=== PATIENT | male | born 1950 | race Caucasian/White ===

== ENCOUNTER 2019-04-08 07:31 | Observation (INO) | payer MEDICARE, OTHER ==
[2019-04-08] MEDS ORDERED: Dextrose 5%-0.9% NaCl 1,000 ML IV SCH (08:30)
[2019-04-08] MEDS ORDERED: Aspirin 81 MG Tab.Chew PO ONE (09:39)
--- NOTE | 2019-04-08 09:39 | EDM.PDOC ---
ED HPI GENERAL MEDICAL PROBLEM - General Chief Complaint: General Stated Complaint: chest pressure Time Seen by Provider: 04/08/19 08:00 Source of Information: Reports: Patient History Limitations: Reports: No Limitations - History of Present Illness INITIAL COMMENTS - FREE TEXT/NARRATIVE: This is a 69yo M with new onset chest pain and diaphoresis and weakness. He states it started around 7 am and he came into the ER just before 8. He denies any prior history of these symptoms or any prior history of heart disease. Onset: Sudden Duration: Minutes:, Constant Location: Reports: Chest Quality: Reports: Ache Severity: Moderate Improves with: Reports: None Worsens with: Reports: None Chest Pain Score (Numeric/FACES): 2 Past Medical History - Past Health History Medical/Surgical History: Denies Medical/Surgical History Psychiatric History: Reports: Anxiety Other Psychiatric History: Depression after his parents passed, went through therapy and "doing better now". Social & Family History - Family History Family Medical History: Noncontributory - Tobacco Use Smoking Status *Q: Never Smoker Second Hand Smoke Exposure: No - Caffeine Use Caffeine Use: Reports: Coffee - Recreational Drug Use Recreational Drug Use: No ED ROS GENERAL - Review of Systems Review Of Systems: ROS reveals no pertinent complaints other than HPI. Constitutional: Reports: No Symptoms HEENT: Reports: No Symptoms Respiratory: Reports: No Symptoms Cardiovascular: Reports: No Symptoms Endocrine: Reports: No Symptoms GI/Abdominal: Reports: No Symptoms : Reports: No Symptoms Musculoskeletal: Reports: No Symptoms Skin: Reports: No Symptoms ED EXAM, GENERAL - Physical Exam Exam: See Below Exam Limited By: No Limitations General Appearance: Alert, WD/WN, No Apparent Distress Eye Exam: Bilateral Eye: EOMI, PERRL Ears: Normal External Exam Ear Exam: Bilateral Ear: TM normal Nose: Normal Inspection Throat/Mouth: Normal Inspection Head: Atraumatic, Normocephalic Neck: Normal Inspection Respiratory/Chest: No Respiratory Distress, Lungs Clear, Normal Breath Sounds Cardiovascular: Normal Peripheral Pulses, Regular Rate, Rhythm GI/Abdominal: Normal Bowel Sounds Back Exam: Normal Inspection Extremities: Normal Inspection, Normal Range of Motion Neurological: Alert, Oriented, CN II-XII Intact Course - Vital Signs Last Recorded V/S: Last Vital Signs Temp 36.8 C 04/08/19 07:40 Pulse 75 04/08/19 08:07 Resp 18 04/08/19 08:07 BP 138/85 04/08/19 08:07 Pulse Ox 100 04/08/19 08:07 - Orders/Labs/Meds Orders: Active Orders 24 hr Category Date Time Status Patient Status [ADT] Routine ADT 04/08/19 09:27 Active EKG Documentation Completion [RC] ASDIRECTED Care 04/08/19 07:50 Active Vital Signs [RC] Q4H Care 04/08/19 09:27 Active Regular Diet [DIET] Diet 04/08/19 Lunch Ordered TROPONIN I [CHEM] Routine Lab 04/08/19 11:00 Ordered TROPONIN I [CHEM] Routine Lab 04/08/19 20:00 Ordered Dextrose 5%-0.9% NaCl [Dextrose 5%-Normal Saline] 1,000 Med 04/08/19 08:30 Active ml IV ASDIRECTED Resuscitation Status Routine Resus Stat 04/08/19 09:27 Ordered Medication Orders Dextrose/Sodium Chloride (Dextrose 5%-Normal Saline) 1,000 mls @ 999 mls/hr IV ASDIRECTED MYRTLE Last Admin: 04/08/19 08:59 Dose: 999 mls/hr Labs: Laboratory Tests 04/08/19 04/08/19 04/08/19 Range/Units 08:00 08:00 08:00 WBC 7.0 (4.0-11.0) K/uL RBC 4.22 L (4.50-6.50) M/uL Hgb 13.7 (13.0-18.0) g/dL Hct 40.1 (40.0-54.0) % MCV 95 (76-96) fL MCH 32.5 H (27.0-32.0) pg MCHC 34.2 (31.0-35.0) g/dL RDW 12.9 (11.0-16.0) % Plt Count 243 (150-400) K/uL MPV 8.6 (6.0-10.0) fL Neut % (Auto) 52.5 (45.0-70.0) % Lymph % (Auto) 32.3 (20.0-40.0) % [place] % (Auto) 11.1 H (3.0-10.0) % Eos % (Auto) 3.4 (1.0-5.0) % Baso % (Auto) 0.7 H (0.0-0.5) % Neut # (Auto) 3.69 (2.00-7.50) K/uL Lymph # (Auto) 2.27 (1.50-4.00) K/uL [place] # (Auto) 0.78 (0.20-0.80) K/uL Eos # (Auto) 0.24 (0.04-0.40) K/uL Baso # (Auto) 0.05 (0.02-0.10) K/uL Sodium 139 (136-145) mmol/L Potassium 4.2 (3.5-5.1) mmol/L Chloride 100 (98-107) mmol/L Carbon Dioxide 27.9 (21.0-32.0) mmol/L Anion Gap 15.3 H (5.0-15.0) mmol/L BUN 19 (8-26) mg/dL Creatinine 1.02 (0.70-1.30) mg/dL Est Cr Clr Drug Dosing 64.48 mL/min Estimated GFR (MDRD) > 60 (>60) MLS/MIN BUN/Creatinine Ratio 18.6 (6-25) Glucose 118 H (74-100) mg/dL Calcium 9.1 (8.5-10.1) mg/dL Troponin I < 0.017 (0.000-0.060) ng/mL B-Natriuretic Peptide 117 (0-125) pg/mL TSH, Ultra Sensitive 1.037 (0.358-3.740) uIU/mL Meds: Medications Generic Name Dose Route Start Last Admin Trade Name Freq PRN Reason Stop Dose Admin Dextrose/Sodium Chloride 1,000 mls @ 999 mls/hr 04/08/19 08:30 04/08/19 08:59 Dextrose 5%-Normal Saline IV 999 mls/hr ASDIRECTED MYRTLE Administration Departure - Departure Time of Disposition: 09:30 Disposition: Refer to Observation Condition: Good Clinical Impression: Chest pain at rest - Discharge Information Referrals: PCP,Unknown [Primary Care Provider] - - Problem List & Annotations (1) Chest pain at rest SNOMED Code(s): 0500346 Code(s): R07.9 - CHEST PAIN, UNSPECIFIED Status: Acute Priority: High Current Visit: Yes (2) Diaphoresis SNOMED Code(s): 40878291 Code(s): R61 - GENERALIZED HYPERHIDROSIS Status: Acute Priority: High Current Visit: Yes (3) Weakness SNOMED Code(s): 51624813 Code(s): R53.1 - WEAKNESS Status: Acute Priority: High Current Visit: Yes - Problem List Review Problem List Initiated/Reviewed/Updated: Yes - My Orders Last 24 Hours: My Active Orders 04/08/19 07:50 EKG Documentation Completion [RC] ASDIRECTED 04/08/19 08:30 Dextrose 5%-0.9% NaCl [Dextrose 5%-Normal Saline] 1,000 ml IV ASDIRECTED 04/08/19 09:27 Patient Status [ADT] Routine Vital Signs [RC] Q4H Resuscitation Status Routine 04/08/19 11:00 TROPONIN I [CHEM] Routine 04/08/19 20:00 TROPONIN I [CHEM] Routine 04/08/19 Lunch Regular Diet [DIET] - Assessment/Plan Last 24 Hours: My Active Orders 04/08/19 07:50 EKG Documentation Completion [RC] ASDIRECTED 04/08/19 08:30 Dextrose 5%-0.9% NaCl [Dextrose 5%-Normal Saline] 1,000 ml IV ASDIRECTED 04/08/19 09:27 Patient Status [ADT] Routine Vital Signs [RC] Q4H Resuscitation Status Routine 04/08/19 11:00 TROPONIN I [CHEM] Routine 04/08/19 20:00 TROPONIN I [CHEM] Routine 04/08/19 Lunch Regular Diet [DIET] Plan: Patient to be placed in observation to rule out ACS. Pending serial troponins.Placed on telemetry.
[2019-04-08 15:24] LABS: HEMOGLOBIN A1C 5.7 % (4.5-6.2)
--- NOTE | 2019-04-09 09:16 | PCM.DCSUM1 ---
Discharge Summary - Discharge Data Discharge Date: 04/08/19 Discharge Disposition: Home, Self-Care 01 Condition: Good - Referral to Home Health Primary Care Physician: Leo Ibanez MD - Discharge Diagnosis/Problem(s) (1) Chest pain at rest SNOMED Code(s): 4825550 ICD Code: R07.9 - CHEST PAIN, UNSPECIFIED Status: Acute Priority: High (2) Diaphoresis SNOMED Code(s): 30498432 ICD Code: R61 - GENERALIZED HYPERHIDROSIS Status: Acute Priority: High (3) Weakness SNOMED Code(s): 89292827 ICD Code: R53.1 - WEAKNESS Status: Acute Priority: High - Patient Instructions Diet: Regular Diet as Tolerated Activity: As Tolerated Driving: May Drive Today Showering/Bathing: May Shower Notify Provider of: Fever, Increased Pain - Discharge Plan Home Medications: Home Meds Omeprazole 40 mg PO ACBREAKFAST #90 cap.sr 04/09/19 [Rx] Patient Handouts: Nonspecific Chest Pain, [id number] Forms: ED Department Discharge Referrals: PCP,Unknown [Ordering Only Provider] - - Discharge Summary/Plan Comment DC Time >30 min.: No Discharge Summary/Plan Comment: Counseled on f/u with PCP for further management of symptoms. Start omeprazole as directed for gastroesopheageal reflux symptoms. F/u as directed for further cardaic screening as needed. - Patient Data Vitals - Most Recent: Last Vital Signs Temp 37.4 C 04/08/19 20:01 Pulse 76 04/08/19 20:01 Resp 16 04/08/19 20:01 BP 144/82 H 04/08/19 20:01 Pulse Ox 100 04/08/19 20:01 Weight - Most Recent: 65.771 kg Lab Results - Last 24 hrs: Laboratory Results - last 24 hr 04/08/19 04/08/19 04/08/19 Range/Units 08:00 11:15 20:14 Hemoglobin A1c 5.7 (4.5-6.2) % Troponin I < 0.017 < 0.017 (0.000-0.060) ng/mL YANET Results - Last 24 hrs: Microbiology 04/08/19 10:25 MRSA Surveillance Culture - Final Nares, Right NO MRSA ISOLATED Med Orders - Current: Current Medications Discontinued Medications Aspirin (Aspirin) 324 mg PO ONETIME ONE Stop: 04/08/19 09:40 Last Admin: 04/08/19 11:18 Dose: 324 mg Dextrose/Sodium Chloride (Dextrose 5%-Normal Saline) 1,000 mls @ 999 mls/hr IV ASDIRECTED [facility] Last Admin: 04/08/19 08:59 Dose: 999 mls/hr
== END 2019-04-08 23:00 | disposition home or self-care (01) ==
LOC: LB.ED 07:31 → LB.MS 09:27
PROVIDERS: ADMIT Family Medicine; ATTEND Family Medicine
DX: R07.9 Chest pain, unspecified (principal); R61 Generalized hyperhidrosis; R53.1 Weakness
CPT/HCPCS: 36415; 80048; 83036; 83880; 84443; 84484; 85025; 93005; 96360; 99285-25; A9270-GY

== ENCOUNTER 2020-03-13 12:11 | Emergency (ER) | payer MEDICARE, OTHER ==
--- NOTE | 2020-03-13 16:34 | ER ---
REASON FOR EMERGENCY ROOM VISIT: Congestion and chest tightness. HISTORY: This 70-year-old man began to experience some fullness and discomfort over his paranasal sinuses earlier this week, 3 days ago. He felt a fullness and he even experienced his upper molars aching that he attributed to sinus infection which he states he has had in the past. He states that on the day that his symptoms began, as the pressure in his sinuses increased, he felt that he developed some tightness in his chest that increased at around the same time that his nasal congestion began more apparent. His nose became completely plugged and he started some Augmentin 875 mg p.o. b.i.d., which he had from a previous prescription. Yesterday he began to have episodes of cold sweats and felt anxious with some shortness of breath and tightness across his chest. This morning, he states that his sinuses opened up and he no longer had the plugged nasal passages, but he still had the tightness across his chest. This was not without any cough. He is a nonsmoker and he did have a stress test in [place] 2 years ago at which time he was told he had the "heart of an 19-year-old." He has never had any history of cardiac disease. PAST MEDICAL HISTORY: 1. Depression and anxiety. 2. Emergency room visit for chest pain with negative workup 1 year ago. 3. History of GERD. MEDICATIONS: Include omeprazole and Augmentin. ALLERGIES: NONE TO MEDICATIONS. REVIEW OF SYSTEMS: Pertinent positives and negatives as listed in the HPI. PHYSICAL EXAMINATION: GENERAL: He is awake and alert and in no acute distress. He is afebrile. VITAL SIGNS: Heart rate is 87, blood pressure 162/95, respiratory rate is 20, and O2 sats 98%. HEENT: Head is normocephalic. Oropharynx is normal. No scleral icterus or conjunctivitis is noted. NECK: Supple. No JVD. CHEST: Clear to auscultation with good air exchange and no wheezes, rhonchi, or rales. CARDIAC: Regular rate without murmur or rub. ABDOMEN: Soft, nontender. EXTREMITIES: Normal pulses. No edema. SKIN: No rashes. LABORATORY DATA: A chest x-ray shows no active pulmonary disease and no infiltrates. A 12- lead EKG shows no acute changes. He does have a right bundle-branch block. We did do a CBC and that was normal with a white count of 10,800 and a hemoglobin of 15.1. A CMP was normal and a troponin 1 was less than 0.017. Because of his symptoms and some decrease in taste sensation, we went ahead and did a COVID nasopharyngeal swab and that was negative. IMPRESSION: Recent onset of sinus congestion, possible sinusitis. PLAN: I think it is a good idea for him to be rechecked for COVID even though he has not traveled and has not knowingly been exposed to anyone with it. I advised him to get it rechecked in 2 days' time unless his symptoms completely disappear. We did discuss some supportive measures in general. I explained why I do not feel antibiotics are indicated. His negative EKG and troponin are reassuring, but a repeat stress test may not be a bad idea at some time in the near future. He agrees with all of this. All questions were answered. JUDY /[id number]
--- NOTE | 2020-03-14 12:04 | CR ---
Date of Service: 03/13/20 Clinical Data: chest pressure PA AND LATERAL CHEST: No priors. The heart size is normal. There is calcification of the aortic arch. The lungs are clear. No pneumothorax. No pleural effusions. No evidence of acute intrathoracic disease. [id number] [facility]
== END 2020-03-13 14:40 | disposition home or self-care (01) ==
LOC: LB.ED 12:11
DX: R09.81 Nasal congestion (principal); R07.89 Other chest pain; K21.9 Gastro-esophageal reflux disease without esophagitis; I45.10 Unspecified right bundle-branch block; Z20.828 Contact with and (suspected) exposure to other viral communicable diseases
CPT/HCPCS: 36415; 71046; 80053; 84484; 85025; 93005; 99285; U0002

== ENCOUNTER 2020-10-27 10:05 | Emergency (ER) | payer MEDICARE ==
[2020-10-27] MEDS ORDERED: Nitroglycerin 0.4 MG Tab.SL SL PRN (11:18)
[2020-10-27] MEDS ORDERED: Aspirin 81 MG Tab.Chew PO ONE (11:20)
--- NOTE | 2020-10-27 14:13 | CR ---
DATE OF SERVICE: 10/27/2020 CLINICAL DATA: Chest pain AP chest: Comparison is made to a prior exam dated 13 March 2020. Heart size is normal. The lungs are clear. No pneumothorax. No pleural effusions. No evidence of acute intrathoracic disease. MTDD
--- NOTE | 2020-10-28 09:21 | ER ---
HISTORY OF PRESENT ILLNESS: A 70-year-old male who comes in with complaints of chest tightness that started on Sunday. He describes it as vague, it is not really pain, but just a sensation of tightness, and at times he feels like just little pins and needles in the sternal area as well. He has had a slight amount of shortness of breath. He is very vague with the details here and feels a little more fatigued than normal. He has not had any problems with nausea or vomiting. The patient states he has had some mild sinus pressure as well. He does have history of a right bundle branch for the last year and a half. He has been recently told he needs to see Cardiology for this and an appointment time is currently being arranged. The patient denies any history of coronary artery disease. He states he has had 2 stress tests in the past and an angiogram once with no negative findings. The patient's only current medication is omeprazole. He was tested for COVID upon arrival and it is negative. OBJECTIVE: GENERAL APPEARANCE: The patient is awake and alert. No obvious distress. VITAL SIGNS: Reviewed. Pulse initially 66. He is running a low-grade temperature of 99.5, blood pressure 129/69, O2 sats 98% on room air. HEENT: Oral mucous membranes are slightly dry. Tonsils are not enlarged or injected. Pharynx not inflamed. NECK: Supple. LUNGS: Clear. CARDIAC: Heart sounds distinct. S1, S2 present. Regular rate. No murmurs. I cannot reproduce any chest discomfort with palpation of the anterior chest wall. ABDOMEN: Soft, nontender. SKIN: Warm and dry. LAB AND X-RAY: An EKG is obtained. There appears to be ST depression in V1 and AVR. I do not see any ST elevation. The patient is in normal sinus rhythm. Chest x-ray is unremarkable. Radiologist report is negative. Labs include a CBC which is normal. CMP shows a low potassium level of 3.2. Troponin is negative and COVID is negative. DIAGNOSES: 1. Chest tightness with an abnormal EKG. 2. Hypokalemia. TREATMENT PLAN: The patient was given 4 baby aspirin and 1 nitroglycerin while waiting for lab results. The nitroglycerin did not seem to change the chest pressure at all. At this point, I consulted with Cardiology in [place], Dr. Tejdaa, who accepted care for the patient. The patient will be transferred to [facility] by ambulance. Condition upon discharge stable. No further treatment measures were done for this patient. CRS/MODL /[id number]
== END 2020-10-27 13:35 ==
LOC: LB.ED 10:05
DX: R07.89 Other chest pain (principal); R94.31 Abnormal electrocardiogram [ECG] [EKG]; E87.6 Hypokalemia; R06.02 Shortness of breath; Z20.822 Contact with and (suspected) exposure to COVID-19
CPT/HCPCS: 36415; 71045; 80053; 84484; 85025; 93005; 99285-25; A0425; A0429; A9270-GY; U0002

== ENCOUNTER 2020-11-02 13:43 | Emergency (ER) | payer MEDICARE ==
--- NOTE | 2020-11-02 14:16 | EDM.PDOC ---
ED HPI GENERAL MEDICAL PROBLEM - General Chief Complaint: General Stated Complaint: LEFT LEG ISSUE Time Seen by Provider: 11/02/20 14:00 Source of Information: Reports: Patient History Limitations: Reports: No Limitations - History of Present Illness INITIAL COMMENTS - FREE TEXT/NARRATIVE: 70 year old male with PMH GERD presents to ED with left leg tingling x 30 minutes. Patient was grocery shopping when the tingling started. Recent hospitalization in [place] for CP, he had a negative angiogram, right radial wrist was used. Denies any LE pain or swelling, CP, SOB, N/V/D, injury, focal or generalized weakness, visual changes, or rashes. Onset: Today Onset Date: 11/02/20 Onset Time: 13:30 Location: Reports: Lower Extremity, Left Quality: Reports: Other (denies pain, reports tingling) Severity: Mild Improves with: Reports: None Worsens with: Reports: None Associated Symptoms: Reports: No Other Symptoms - Related Data Allergies Allergy/AdvReac Type Severity Reaction Status Date / Time Sulfa (Sulfonamide Allergy Other Verified 10/27/20 11:05 Antibiotics) Home Meds: Home Meds Omeprazole 40 mg PO ACBREAKFAST #90 cap.sr 04/09/19 [Rx] Past Medical History - Past Health History Medical/Surgical History: Denies Medical/Surgical History HEENT History: Reports: Sinusitis Cardiovascular History: Reports: Other (See Below) Other Cardiovascular History: RBBB Recent cardiac work up with angiogram Gastrointestinal History: Reports: GERD, Other (See Below) Other Gastrointestinal History: peptic ulcer Psychiatric History: Reports: Anxiety Other Psychiatric History: Depression after his parents passed, went through t herapy and "doing better now". - Infectious Disease History Infectious Disease History: Reports: Chicken Pox, Measles - Past Surgical History HEENT Surgical History: Reports: Adenoidectomy, Tonsillectomy Social & Family History - Family History Family Medical History: No Pertinent Family History - Tobacco Use Tobacco Use Status *Q: Never Tobacco User Second Hand Smoke Exposure: No - Caffeine Use Caffeine Use: Reports: Coffee ED ROS GENERAL - Review of Systems Review Of Systems: Comprehensive ROS is negative, except as noted in HPI. Musculoskeletal: Reports: Other (left LE numbness, from foot to knee) ED EXAM, GENERAL - Physical Exam Exam: See Below Exam Limited By: No Limitations General Appearance: Alert, No Apparent Distress, Anxious Eye Exam: Bilateral Eye: Normal Inspection, PERRL Ears: Normal External Exam, Hearing Grossly Normal, Normal TMs Ear Exam: Bilateral Ear: Auricle Normal, Canal Normal, TM normal Nose: Normal Inspection, Normal Mucosa, No Blood Throat/Mouth: Normal Inspection, Normal Lips, Normal Teeth, Normal Gums, Normal Oropharynx, Normal Voice, No Airway Compromise Head: Atraumatic Neck: Normal Inspection, Non-Tender, Full Range of Motion Respiratory/Chest: No Respiratory Distress, Lungs Clear, Normal Breath Sounds, No Accessory Muscle Use, Chest Non-Tender Cardiovascular: Normal Peripheral Pulses, Regular Rate, Rhythm, No Edema, No JVD, No Murmur Peripheral Pulses: 3+: Carotid (L), Carotid (R), Radial (L), Radial (R), Posterior Tibial (L), Posterior Tibial (R), Dorsalis Pedis (L), Dorsalis Pedis (R) GI/Abdominal: Normal Bowel Sounds, Soft, Non-Tender, No Organomegaly, No Mass (Male) Exam: Deferred Rectal (Males) Exam: Deferred Back Exam: Normal Inspection, Full Range of Motion. No: CVA Tenderness (R), CVA Tenderness (L), Paraspinal Tenderness, Vertebral Tenderness Extremities: Normal Inspection, Normal Range of Motion, Non-Tender, No Pedal Edema, Normal Capillary Refill Neurological: Alert, Oriented, CN II-XII Intact, Normal Cognition, Normal Gait, Normal Reflexes, No Motor/Sensory Deficits Psychiatric: Normal Affect, Normal Mood Skin Exam: Warm, Dry, Intact, Normal Color, No Rash Lymphatic: No Adenopathy Course - Vital Signs Last Recorded V/S: Last Vital Signs Temp 97.9 F 11/02/20 13:59 Pulse 84 11/02/20 13:59 Resp 16 11/02/20 13:59 BP 141/81 H 11/02/20 16:15 Pulse Ox 100 11/02/20 13:59 - Orders/Labs/Meds Orders: Active Orders 24 hr Category Date Time Status Head wo Cont [CT] Stat Exams 11/02/20 14:06 Taken Sodium Chloride 0.9% [Saline Flush] Med 11/02/20 15:20 Ordered 10 ml FLUSH ASDIRECTED PRN Peripheral IV Insertion Adult [OM.PC] Routine Oth 11/02/20 15:20 Ordered Medication Orders Sodium Chloride (Sodium Chloride 0.9% 10 Ml Syringe) 10 ml FLUSH ASDIRECTED PRN PRN Reason: Keep Vein Open Last Admin: 11/02/20 16:22 Dose: 10 ml Documented by: Labs: Laboratory Tests 11/02/20 11/02/20 Range/Units 15:20 15:40 WBC 11.5 H (4.0-11.0) K/uL RBC 4.43 L (4.50-6.50) M/uL Hgb 14.2 (13.0-18.0) g/dL Hct 41.0 (40.0-54.0) % MCV 93 (76-96) fL MCH 32.1 H (27.0-32.0) pg MCHC 34.6 (31.0-35.0) g/dL RDW 12.7 (11.0-16.0) % Plt Count 284 (150-400) K/uL MPV 8.9 (6.0-10.0) fL Neut % (Auto) 71.4 H (45.0-70.0) % Lymph % (Auto) 18.2 L (20.0-40.0) % [place] % (Auto) 9.0 (3.0-10.0) % Eos % (Auto) 1.1 (1.0-5.0) % Baso % (Auto) 0.3 (0.0-0.5) % Neut # (Auto) 8.21 H (2.00-7.50) K/uL Lymph # (Auto) 2.09 (1.50-4.00) K/uL [place] # (Auto) 1.04 H (0.20-0.80) K/uL Eos # (Auto) 0.13 (0.04-0.40) K/uL Baso # (Auto) 0.04 (0.02-0.10) K/uL Sodium 136 (136-145) mmol/L Potassium 4.1 D (3.5-5.1) mmol/L Chloride 97 L (98-107) mmol/L Carbon Dioxide 28.2 (21.0-32.0) mmol/L Anion Gap 14.9 (5.0-15.0) mmol/L BUN 13 (8-26) mg/dL Creatinine 1.08 (0.70-1.30) mg/dL Est Cr Clr Drug Dosing TNP Estimated GFR (MDRD) > 60 (>60) MLS/MIN BUN/Creatinine Ratio 12.0 (6-25) Glucose 105 H (74-100) mg/dL Calcium 9.2 (8.5-10.1) mg/dL Total Bilirubin 0.6 D (0.0-1.0) mg/dL AST 14 L (15-37) U/L ALT 25 (12-78) U/L Alkaline Phosphatase 71 (46-116) U/L Total Protein 7.9 (6.4-8.2) g/dL Albumin 4.2 (3.4-5.0) g/dL Globulin 3.7 (2.2-4.2) g/dL Albumin/Globulin Ratio 1.1 (0.8-2.0) Meds: Medications Generic Name Dose Route Start Last Admin Trade Name Freq PRN Reason Stop Dose Admin Sodium Chloride 10 ml 11/02/20 15:20 11/02/20 16:22 Sodium Chloride 0.9% 10 Ml Syringe FLUSH 10 ml ASDIRECTED PRN Administration Keep Vein Open Discontinued Medications Generic Name Dose Route Start Last Admin Trade Name Freq PRN Reason Stop Dose Admin Labetalol HCl 20 mg 11/02/20 15:20 11/02/20 15:57 Labetalol 100 Mg/20 Ml Mdv IVPUSH 11/02/20 15:21 20 ml ONETIME ONE Administration Protocol Labetalol HCl 5 mg 11/02/20 16:15 11/02/20 16:20 Labetalol 100 Mg/20 Ml Mdv IVPUSH 11/02/20 16:16 5 ml ONETIME ONE Administration Protocol Departure - Departure Time of Disposition: 17:10 Disposition: DC/Tfer to Acute Hospital 02 Condition: Good Clinical Impression: Numbness and tingling of left leg, Anxiety, Intraparenchymal hemorrhage of brain - Discharge Information *PRESCRIPTION DRUG MONITORING PROGRAM REVIEWED*: Not Applicable *COPY OF PRESCRIPTION DRUG MONITORING REPORT IN PATIENT KINJAL: Not Applicable Referrals: Leo Ibanez MD [Primary Care Provider] - Forms: ED Department Discharge Additional Instructions: [facility] Sepsis Event Note (ED) - Evaluation Sepsis Screening Result: No Definite Risk - Focused Exam Vital Signs: Vital Signs Temp Pulse Resp BP Pulse Ox 11/02/20 16:15 141/81 H 11/02/20 16:10 155/87 H 11/02/20 15:55 144/83 H 11/02/20 15:39 141/101 H 11/02/20 15:06 150/91 H 11/02/20 13:59 97.9 F 84 16 150/96 H 100 - My Orders Last 24 Hours: My Active Orders 11/02/20 14:06 Head wo Cont [CT] Stat 11/02/20 15:20 Sodium Chloride 0.9% [Saline Flush] 10 ml FLUSH ASDIRECTED PRN Peripheral IV Insertion Adult [OM.PC] Routine - Assessment/Plan Last 24 Hours: My Active Orders 11/02/20 14:06 Head wo Cont [CT] Stat 11/02/20 15:20 Sodium Chloride 0.9% [Saline Flush] 10 ml FLUSH ASDIRECTED PRN Peripheral IV Insertion Adult [OM.PC] Routine Assessment:: Discussed with at length signs of DVT, i.e: pain in calf, warmth, redness, swelling, SOB. Patient denies any of these. Neuro exam was grossly negative, we discussed stroke signs generalized/focal weakness, facial droop, slurred speech, numb tingling extremities, we will proceed with head CT, patient is agreeable to this plan. Plan: [address] [facility] [address] Marsh, there is interval development of a tiny 6 mm ovoid focus of hyperattenuation intimately associated with the anterolateral aspect of the anterior horn of the right lateral ventricle could reflect an occult intraparenchymal hemorrhage. 1435 Spoke with Talya haas [facility], she will page neuro and call back once they receive the CT images in PACS. [address] Huffman, he is accepting patient, he would like patient to gp to ER [facility], Dr. Troy accepting for ER. Patient's leg tingling has resolved. Labetolol ordered 20 mg IV to keep systolic <=140. 1500 Still attempting to find transportation, [place] [facility] will call back. Patient denies any pain, neuro exam unremarkable. 1541 [place] [facility] enroute. no neuro changes noted. 1615 Patient has had total 35 mg IV labetolol push, BP systolic 140's, Stew pharmacist mixed labetolol drip 1:1 1645 ETA 30 minutes for flight. Patient remains neurologically intact without deficits. BP 147/80, additional 5 mg IV bolus labetolol. 1700 patient remains stable without neuro changes.
[2020-11-02] MEDS ORDERED: Labetalol 100 MG/20 ML MDV IVPUSH ONE ×5 (15:20→17:00)
[2020-11-02] MEDS: Sodium Chloride 0.9% 10 ML Syringe FLUSH PRN ×3 (16:00→16:22)
--- NOTE | 2020-11-02 16:18 | PCM.EKG ---
#1 Interpretation EKG Date: 11/02/20 Time: 15:50 Rhythm: Other (sinus rhythm with marked sinus arrhythmia with PAC) QRS: RBBB Comparison: NA - No Prior EKG
[2020-11-02] MEDS ORDERED: Labetalol 100 MG in Sodium Chloride 0.9% 80 ML IV SCH (17:15)
--- NOTE | 2020-11-02 17:51 | CT ---
Date of Service: 11/02/20 Clinical Data: tingling in leg UNENHANCED BRAIN CT: Multislice acquisition through the brain without IV contrast was performed. Comparison is made to a prior unenhanced brain CT dated 05/27/07. There is a 7 mm hyperdense focus lateral to the frontal horn of the right lateral ventricle. It was not present on the prior CT. There is no mass effect associated with it. This could represent focal calcification secondary to a prior infectious process, prior trauma, or other dystrophic calcification. Focal hemorrhagic infarct or other parenchymal hemorrhage cannot be excluded. No other foci of abnormal attenuation. No masses. The osseous structures are unremarkable. IMPRESSION: Abnormal exam. See above. See above differential. The patient's physician was notified of the findings by telephone and by [facility] preliminary radiology report. [id number] [facility]
== END 2020-11-02 17:45 ==
LOC: LB.ED 13:43
DX: I61.9 Nontraumatic intracerebral hemorrhage, unspecified (principal); F41.9 Anxiety disorder, unspecified; K21.9 Gastro-esophageal reflux disease without esophagitis; Z88.2 Allergy status to sulfonamides; Z79.899 Other long term (current) drug therapy
CPT/HCPCS: 36415; 70450; 80053; 85025; 93005; 96365; 96376; 99285-25; A0425; A0429; J3490

== ENCOUNTER 2020-11-11 09:34 | Emergency (ER) | payer MEDICARE ==
--- NOTE | 2020-11-11 10:10 | EDM.PDOC ---
ED HPI GENERAL MEDICAL PROBLEM - General Chief Complaint: Cardiovascular Problem Stated Complaint: HEART PALPITATIONS, CHEST PAIN Time Seen by Provider: 11/11/20 09:55 Source of Information: Reports: Patient History Limitations: Reports: No Limitations - History of Present Illness INITIAL COMMENTS - FREE TEXT/NARRATIVE: This is a 70yo M who has come into clinic due to concerns of an abnormal heart rhythm. He bought a new Om[employer] wrist BP cuff and it has a notation for an irregular heart rhythm and was instructed to see his Physician if the icon showed up persistently. Onset: Gradual Duration: Hour(s):, Constant Location: Reports: Chest Severity: Mild Improves with: Reports: None Worsens with: Reports: None Associated Symptoms: Reports: No Other Symptoms - Related Data Allergies Allergy/AdvReac Type Severity Reaction Status Date / Time Sulfa (Sulfonamide Allergy Other Verified 11/11/20 10:01 Antibiotics) Home Meds: Home Meds Omeprazole 40 mg PO ACBREAKFAST #90 cap.sr 04/09/19 [Rx] Magnesium 250 mg PO DAILY 11/11/20 [History] amLODIPine [Norvasc] 2.5 mg PO ASDIRECTED PRN 11/11/20 [History] atorvaSTATin [Lipitor] 10 mg PO BEDTIME 11/11/20 [History] hydrOXYzine HCL [Atarax] 25 mg PO DAILY 11/11/20 [History] Past Medical History - Past Health History Medical/Surgical History: Denies Medical/Surgical History HEENT History: Reports: Sinusitis Cardiovascular History: Reports: Other (See Below) Other Cardiovascular History: RBBB Recent cardiac work up with angiogram Gastrointestinal History: Reports: GERD, Other (See Below) Other Gastrointestinal History: peptic ulcer Psychiatric History: Reports: Anxiety Other Psychiatric History: Depression after his parents passed, went through therapy and "doing better now". - Infectious Disease History Infectious Disease History: Reports: Chicken Pox, Measles - Past Surgical History HEENT Surgical History: Reports: Adenoidectomy, Tonsillectomy Social & Family History - Family History Family Medical History: No Pertinent Family History - Caffeine Use Caffeine Use: Reports: Coffee ED ROS GENERAL - Review of Systems Review Of Systems: Comprehensive ROS is negative, except as noted in HPI. ED EXAM, GENERAL - Physical Exam Exam: See Below Exam Limited By: No Limitations General Appearance: Alert, WD/WN, No Apparent Distress, Anxious Ears: Normal External Exam Nose: Normal Inspection Throat/Mouth: Normal Inspection Head: Atraumatic, Normocephalic Neck: Normal Inspection Respiratory/Chest: No Respiratory Distress, Lungs Clear, Normal Breath Sounds Cardiovascular: Normal Peripheral Pulses, Regular Rate, Rhythm, No Edema GI/Abdominal: Normal Bowel Sounds Extremities: Normal Inspection Neurological: Alert, Oriented, CN II-XII Intact Psychiatric: Normal Affect, Normal Mood, Anxious Skin Exam: Warm, Dry, Intact #1 Interpretation EKG Date: 11/11/20 Time: 09:43 Rhythm: NSR Rate (Beats/Min): 86 [place]: Normal P-Wave: Present QRS: RBBB ST-T: Normal QT: Normal Comparison: No Change EKG Interpretation Comments: No change from multiple prior EKG results. Course - Vital Signs Last Recorded V/S: Last Vital Signs Temp 36.8 C 11/11/20 09:37 Pulse 89 11/11/20 11:06 Resp 16 11/11/20 11:06 BP 135/92 H 11/11/20 11:06 Pulse Ox 98 11/11/20 11:06 - Orders/Labs/Meds Orders: Active Orders 24 hr Category Date Time Status Holter Monitor 8-15 Day [EK] Stat Ther 11/11/20 10:04 Ordered Labs: Laboratory Tests 11/11/20 11/11/20 Range/Units 10:03 10:30 WBC 6.8 D (4.0-11.0) K/uL RBC 4.39 L (4.50-6.50) M/uL Hgb 14.2 (13.0-18.0) g/dL Hct 40.5 (40.0-54.0) % MCV 92 (76-96) fL MCH 32.3 H (27.0-32.0) pg MCHC 35.1 H (31.0-35.0) g/dL RDW 12.6 (11.0-16.0) % Plt Count 240 (150-400) K/uL MPV 8.8 (6.0-10.0) fL Neut % (Auto) 70.0 (45.0-70.0) % Lymph % (Auto) 17.4 L (20.0-40.0) % [place] % (Auto) 9.9 (3.0-10.0) % Eos % (Auto) 2.3 (1.0-5.0) % Baso % (Auto) 0.4 (0.0-0.5) % Neut # (Auto) 4.78 (2.00-7.50) K/uL Lymph # (Auto) 1.19 L (1.50-4.00) K/uL [place] # (Auto) 0.68 (0.20-0.80) K/uL Eos # (Auto) 0.16 (0.04-0.40) K/uL Baso # (Auto) 0.03 (0.02-0.10) K/uL Sodium 137 (136-145) mmol/L Potassium 4.1 (3.5-5.1) mmol/L Chloride 99 (98-107) mmol/L Carbon Dioxide 29.0 (21.0-32.0) mmol/L Anion Gap 13.1 (5.0-15.0) mmol/L BUN 18 D (8-26) mg/dL Creatinine 1.16 (0.70-1.30) mg/dL Est Cr Clr Drug Dosing 53.98 mL/min Estimated GFR (MDRD) > 60 (>60) MLS/MIN BUN/Creatinine Ratio 15.5 (6-25) Glucose 121 H (74-100) mg/dL Calcium 9.2 (8.5-10.1) mg/dL Troponin I < 0.017 (0.000-0.060) ng/mL Departure - Departure Time of Disposition: 12:30 Disposition: Home, Self-Care 01 Condition: Good Clinical Impression: Palpitations Instructions: Ambulatory Cardiac Monitoring Referrals: PCP,None [Primary Care Provider] - Forms: ED Department Discharge Additional Instructions: Discharge home. Follow up in the clinic with Dr. Ibanez in 3 weeks. Wear Holter monitor for 14 days. If you have any questions or concerns call or return to the ER. Sepsis Event Note (ED) - Evaluation Sepsis Screening Result: No Definite Risk - Focused Exam Vital Signs: Vital Signs Temp Pulse Resp BP Pulse Ox 11/11/20 11:06 89 16 135/92 H 98 11/11/20 10:19 85 9 L 121/81 97 11/11/20 10:03 91 7 L 122/66 97 11/11/20 09:51 87 11 L 134/87 97 11/11/20 09:45 88 8 L 128/80 97 11/11/20 09:37 36.8 C 82 16 145/83 H 97 11/11/20 09:36 36.8 C 88 16 145/83 H 97 - Problem List & Annotations (1) Abnormal heart rhythm SNOMED Code(s): 236299841 Code(s): I49.9 - CARDIAC ARRHYTHMIA, UNSPECIFIED Status: Resolved Priority: High Current Visit: Yes Qualifiers: Arrhythmia type: unspecified cardiac arrhythmia Qualified Code(s): I49.9 - Cardiac arrhythmia, unspecified - Problem List Review Problem List Initiated/Reviewed/Updated: Yes - My Orders Last 24 Hours: My Active Orders 11/11/20 10:04 Holter Monitor 8-15 Day [EK] Stat - Assessment/Plan Last 24 Hours: My Active Orders 11/11/20 10:04 Holter Monitor 8-15 Day [EK] Stat Plan: Patient counseled on monitoring of symptoms and supportive/conservative management. Discussed use of Holter monitor for 14 days and f/u results in clinic as directed. Discussed f/u in ER or clinic if any further cardiac concerns or health concerns.
== END 2020-11-11 12:40 | disposition home or self-care (01) ==
LOC: LB.ED 09:34
DX: R00.2 Palpitations (principal); K21.9 Gastro-esophageal reflux disease without esophagitis; Z79.899 Other long term (current) drug therapy; Z88.2 Allergy status to sulfonamides
CPT/HCPCS: 36415; 80048; 84484; 85025; 93005; 93246; 93247; 99283; 99285-25

== ENCOUNTER 2020-11-19 02:25 | Emergency (ER) | payer MEDICARE ==
--- NOTE | 2020-11-19 03:30 | EDM.PDOCBH ---
ED HPI GENERAL MEDICAL PROBLEM - General Chief Complaint: Behavioral/Psych Stated Complaint: cant sleep Time Seen by Provider: 11/19/20 03:15 Source of Information: Reports: Patient History Limitations: Reports: No Limitations - History of Present Illness INITIAL COMMENTS - FREE TEXT/NARRATIVE: patient presented to the ER c/o lack of sleep. Reports a h/o anxiety for several weeks after he recently as diagnosed with small ICH. Was seen by his PCP a week ago for anxiety who prescribed her BuSpar and Ambien. Patient reports he used BuSpar today, with minimal help, but didn't use the Ambien yet. Instead he smoked some marijuana 2-3 today which helped him calm and sleep for few hours but enough per his report. When asked about the reason he didn't use Ambien as per his PCP recommendation - he reported that he was concerned about getting addicted to it, because his son who was a vet in [place] got addicted to it. Denies CP or SOB. No suicidal ideations. - Related Data Allergies Allergy/AdvReac Type Severity Reaction Status Date / Time Sulfa (Sulfonamide Allergy Other Verified 11/19/20 02:53 Antibiotics) Home Meds: Home Meds amLODIPine [Norvasc] 2.5 mg PO ASDIRECTED PRN 11/11/20 [History] atorvaSTATin [Lipitor] 10 mg PO BEDTIME 11/11/20 [History] Fluticasone Propionate [Flovent Diskus] 50 mcg IH BID 11/19/20 [History] Omeprazole 20 mg PO DAILY 11/19/20 [History] Sertraline [Zoloft] 25 mg PO DAILY 11/19/20 [History] Zolpidem [Ambien] 5 mg PO BEDTIME PRN 11/19/20 [History] busPIRone [Buspar] 10 mg PO TID 11/19/20 [History] Past Medical History - Past Health History Medical/Surgical History: Denies Medical/Surgical History HEENT History: Reports: Sinusitis Cardiovascular History: Reports: Other (See Below) Other Cardiovascular History: RBBB Recent cardiac work up with angiogram Gastrointestinal History: Reports: GERD, Other (See Below) Other Gastrointestinal History: peptic ulcer Psychiatric History: Reports: Anxiety Other Psychiatric History: Depression after his parents passed, went through therapy and "doing better now". - Infectious Disease History Infectious Disease History: Reports: Chicken Pox, Measles - Past Surgical History HEENT Surgical History: Reports: Adenoidectomy, Tonsillectomy Social & Family History - Family History Family Medical History: No Pertinent Family History - Tobacco Use Tobacco Use Status *Q: Never Tobacco User - Caffeine Use Caffeine Use: Reports: Coffee ED ROS GENERAL - Review of Systems Review Of Systems: See Below Constitutional: Reports: Malaise, Fatigue, Decreased Appetite HEENT: Reports: No Symptoms Respiratory: Reports: No Symptoms Cardiovascular: Reports: No Symptoms GI/Abdominal: Reports: No Symptoms Musculoskeletal: Reports: No Symptoms Skin: Reports: No Symptoms Neurological: Reports: No Symptoms Psychiatric: Reports: Anxiety, Depression ED EXAM, BEHAVIORAL HEALTH - Physical Exam Exam: See Below Exam Limited By: No Limitations General Appearance: Alert, WD/WN, No Apparent Distress Eye Exam: Bilateral Eye: EOMI Respiratory/Chest: No Respiratory Distress, Lungs Clear Cardiovascular: Normal Peripheral Pulses, Regular Rate, Rhythm GI/Abdominal: Normal Bowel Sounds Neurological: Alert, Normal Mood/Affect, Normal Cognition, No Motor/Sensory Deficits, Oriented x 3 Psychiatric: Alert, Normal Cognition, Oriented, Depressed Mood. No: Disoriented, Suicidal Plan, Suicidal Thoughts COURSE, BEHAVIORAL HEALTH COMP - Course Vital Signs: Last Vital Signs Temp 35.9 C L 11/19/20 02:30 Pulse 76 11/19/20 02:30 Resp 16 11/19/20 02:30 BP 163/95 H 11/19/20 02:30 Pulse Ox 100 11/19/20 02:30 Discharge vs Psych Eval/Treatment:: normal vitals discussed with the patient the importance to follow his PCP recommendation and to give it a try for Ambien to see if it helps or not. Also recommended to avoid using THC for now due to a possible interaction and it might induce anxiety. Patient it agreeable and appreciate the affirmation Departure - Departure Time of Disposition: 03:00 Disposition: Home, Self-Care 01 Condition: Good Clinical Impression: Anxiety, Insomnia - Discharge Information *PRESCRIPTION DRUG MONITORING PROGRAM REVIEWED*: Not Applicable *COPY OF PRESCRIPTION DRUG MONITORING REPORT IN PATIENT KINJAL: Not Applicable Instructions: Insomnia, Managing Anxiety, Adult Referrals: PCP,None [Primary Care Provider] - Forms: ED Department Discharge Additional Instructions: - take Ambien as prescribed - follow up with the clinic on Sunday if sleep having issue with sleeping - Recommend not to mix marijuana smoking with your current medications Sepsis Event Note (ED) - Evaluation Sepsis Screening Result: No Definite Risk - Focused Exam Vital Signs: Vital Signs Temp Pulse Resp BP Pulse Ox 11/19/20 02:30 35.9 C L 76 16 163/95 H 100 - Problem List & Annotations (1) Anxiety SNOMED Code(s): 21971053 Code(s): F41.9 - ANXIETY DISORDER, UNSPECIFIED Status: Acute Priority: Medium (2) Insomnia SNOMED Code(s): 587379589 Code(s): G47.00 - INSOMNIA, UNSPECIFIED Status: Acute Priority: Medium Qualifiers: Insomnia type: unspecified Qualified Code(s): G47.00 - Insomnia, unspecified - Problem List Review Problem List Initiated/Reviewed/Updated: Yes
== END 2020-11-19 03:35 | disposition home or self-care (01) ==
LOC: LB.ED 02:25
DX: G47.00 Insomnia, unspecified (principal); F41.9 Anxiety disorder, unspecified; K21.9 Gastro-esophageal reflux disease without esophagitis; Z88.2 Allergy status to sulfonamides
CPT/HCPCS: 99283

== ENCOUNTER 2021-04-26 12:49 | Emergency (ER) | payer MEDICARE ==
[2021-04-26] MEDS: Ketorolac 60 MG/2 ML SDV IM ONE (13:43)
[2021-04-26] MEDS: Ketorolac 30 MG/ML SDV ONE (13:48)
--- NOTE | 2021-04-26 14:43 | CT ---
DATE OF SERVICE: 04/26/2021 CLINICAL DATA: Abdominal Pain Unenhanced abdomen and pelvic CT: Multislice acquisition through the abdomen and pelvis without IV or oral contrast was performed. No priors. There are linear densities in both lung bases consistent with linear atelectasis or fibrosis. Lung bases are otherwise clear. The heart size is normal. There is a small hiatal hernia. There is gastric wall thickening in the antrum of the stomach and there is mural thickening in the duodenum. Gastritis/duodenitis should be considered. Peptic acid disease should be considered. I cannot completely exclude an infiltrating process. The liver is normal size. There is a 1.6 cm sharply transcribed fluid density lesion within the right lobe of the liver adjacent to the gallbladder fossa . There is another 1.6 cm sharply transcribed fluid density lesion in the left lobe of the liver adjacent to the falciform ligament. These are consistent in appearance with hepatic cyst. No other focal hepatic lesions. The gallbladder appears normal. No calcified gallstones. No pericholecystic fluid. The spleen appears normal. The pancreas appears normal. The right and left adrenals appear normal. The there is a 2 mm nonobstructing renal calculi in the lower pole of the right kidney. No nephrocalcinosis or nephrolithiasis on the left. The kidneys otherwise appear unremarkable. No hydronephrosis or hydroureter. The bladder is partially fluid filled. It appears normal. The prostate significantly enlarged. There are calcifications within it consistent with chronic prostatitis. The appendix is not dilated. No evidence of appendicitis. There is a moderate amount of stool noted within the cecum and ascending colon. There is mild mural thickening within the distal sigmoid colon and rectum. Colitis/proctitis should be considered. Direct visualization is recommended. No free air. No free fluid. No dilated loops of bowel. No adenopathy. No aortic aneurysm. There is degenerative disc disease throughout the lower thoracic and lumbar spine. MTDD
--- NOTE | 2021-04-26 14:51 | EDM.PDOC ---
ED HPI GENERAL MEDICAL PROBLEM - General Chief Complaint: Abdominal Pain Stated Complaint: SEVERE ABDOMINAL PAIN Time Seen by Provider: 04/26/21 13:15 Source of Information: Reports: Patient History Limitations: Reports: No Limitations - History of Present Illness INITIAL COMMENTS - FREE TEXT/NARRATIVE: This patient presents to the emergency department for evaluation of abdominal pain. He states the pain started at about 5 AM and woke him from sleep. He had a couple of episodes of vomiting prior to 7 AM but has not had any since that time. He states he is just continue to have the pain. Last bowel movement was yesterday which she describes as normal. He has had no diarrhea with this. He has not had a fever. He denies other concerns or complaints. Middle Abdomen Pain Score (Numeric/FACES): 7 - Related Data Allergies Allergy/AdvReac Type Severity Reaction Status Date / Time Sulfa (Sulfonamide Allergy Other Verified 04/26/21 13:08 Antibiotics) Home Meds: Home Meds amLODIPine [Norvasc] 2.5 mg PO ASDIRECTED PRN 11/11/20 [History] atorvaSTATin [Lipitor] 10 mg PO BEDTIME 11/11/20 [History] Fluticasone Propionate [Flovent Diskus] 50 mcg IH BID 11/19/20 [History] Omeprazole 20 mg PO DAILY 11/19/20 [History] Sertraline [Zoloft] 25 mg PO DAILY 11/19/20 [History] Past Medical History - Past Health History Medical/Surgical History: Denies Medical/Surgical History HEENT History: Reports: Sinusitis Cardiovascular History: Reports: Other (See Below) Other Cardiovascular History: RBBB Recent cardiac work up with angiogram Gastrointestinal History: Reports: GERD, Other (See Below) Other Gastrointestinal History: peptic ulcer Psychiatric History: Reports: Anxiety Other Psychiatric History: Depression after his parents passed, went through therapy and "doing better now". - Infectious Disease History Infectious Disease History: Reports: Chicken Pox, Measles - Past Surgical History HEENT Surgical History: Reports: Adenoidectomy, Tonsillectomy Social & Family History - Family History Family Medical History: No Pertinent Family History - Caffeine Use Caffeine Use: Reports: Coffee - Recreational Drug Use Recreational Drug Use: Yes Recreational Drug Type: Reports: Marijuana/Hashish Recreational Drug Use Frequency: Weekly ED ROS GENERAL - Review of Systems Review Of Systems: Comprehensive ROS is negative, except as noted in HPI. ED EXAM, RENAL/ - Physical Exam Exam: See Below Exam Limited By: No Limitations General Appearance: Alert, WD/WN, No Apparent Distress Eye Exam: Bilateral Eye: PERRL Ears: Normal External Exam Throat/Mouth: Normal Inspection Head: Atraumatic, Normocephalic Neck: Normal Inspection Respiratory/Chest: No Respiratory Distress, Lungs Clear, Normal Breath Sounds, No Accessory Muscle Use Cardiovascular: Regular Rate, Rhythm GI/Abdominal: Soft, Tender, Abnormal Bowel Sounds (In all 4 quadrants hypoactive) Back Exam: CVA Tenderness (R). No: CVA Tenderness (L) (Mild) Extremities: Normal Inspection Neurological: Alert, Oriented Psychiatric: Normal Affect Skin Exam: Warm, Dry, Intact Course - Vital Signs Last Recorded V/S: Last Vital Signs Temp 36.6 C 04/26/21 14:12 Pulse 55 L 04/26/21 14:12 Resp 16 04/26/21 14:12 BP 167/88 H 04/26/21 14:12 Pulse Ox 98 04/26/21 14:12 - Orders/Labs/Meds Labs: Laboratory Tests 04/26/21 Range/Units 13:18 Urine Color Yellow Urine Appearance Cloudy (CLEAR) Urine pH 8.5 H (5.0-8.0) Ur Specific [place] 1.025 (1.003-1.030) Urine Protein Negative (NEGATIVE) mg/dL Urine Glucose (UA) Negative (NEGATIVE) mg/dL Urine Ketones 15 H (NEGATIVE) mg/dL Urine Occult Blood Trace-intact H (NEGATIVE) Urine Nitrite Negative (NEGATIVE) Urine Bilirubin Negative (NEGATIVE) Urine Urobilinogen 0.2 (0.2-1.0) E.U./dL Ur Leukocyte Esterase Negative (NEGATIVE) Urine RBC 0-5 H /HPF Urine WBC Not seen /HPF Ur Squamous Epith Cells Occasional /HPF Amorphous Sediment Many /HPF Meds: Medications Discontinued Medications Generic Name Dose Route Start Last Admin Trade Name Freq PRN Reason Stop Dose Admin Ketorolac Tromethamine 30 mg 04/26/21 13:40 04/26/21 13:43 Ketorolac 60 Mg/2 Ml Sdv IM 04/26/21 13:41 30 mg ONETIME ONE Administration Ketorolac Tromethamine Confirm 04/26/21 13:51 04/26/21 13:48 Ketorolac 30 Mg/Ml Sdv Administered 04/26/21 13:52 Not Given Dose 30 mg .ROUTE .[facility] ONE - Re-Assessments/Exams Free Text/Narrative Re-Assessment/Exam: 04/26/21 14:49 This patient presents with flank abdominal pain. Differential diagnosis considered including your ureteral lithiasis, urinary tract infection, pyelonephritis, appendicitis, colitis, diverticulitis, volvulus. Signs and symptoms are most consistent with ureterolithiasis. This was confirmed on CT with a 2 mm stone on his right side. He was given Toradol in the emergency department and did get some relief from that however continues to have some pain. He will be discharged to home with prescriptions for Flomax and Percocet to be used for more severe pain. There is no evidence of an infected stone and he is hemodynamically stable. He will be seen by his primary care provider in 2 to 3 days if he is not better, sooner if he is worse in any way. The patient was stable at the time of discharge. Departure - Departure Time of Disposition: 14:50 Disposition: Home, Self-Care 01 Condition: Good Clinical Impression: Urolithiasis - Discharge Information *PRESCRIPTION DRUG MONITORING PROGRAM REVIEWED*: Not Applicable *COPY OF PRESCRIPTION DRUG MONITORING REPORT IN PATIENT KINJAL: Not Applicable Instructions: Kidney Stones, [id number] Referrals: PCP,None [Primary Care Provider] - Forms: ED Department Discharge Sepsis Event Note (ED) - Evaluation Sepsis Screening Result: No Definite Risk - Focused Exam Vital Signs: Vital Signs Temp Temp Pulse Resp BP Pulse Ox 04/26/21 14:12 36.6 C 55 L 16 167/88 H 98 04/26/21 13:09 36.6 C 55 L 18 172/90 H 98
== END 2021-04-26 14:56 | disposition home or self-care (01) ==
LOC: LB.ED 12:49
DX: N20.9 Urinary calculus, unspecified (principal); K21.9 Gastro-esophageal reflux disease without esophagitis; Z88.2 Allergy status to sulfonamides; Z79.899 Other long term (current) drug therapy
CPT/HCPCS: 74176; 81001; 96372; 99284; J1885